=== PATIENT | female | born 1970 | race Caucasian/White ===

== ENCOUNTER 2018-08-03 10:29 | Emergency (ER) | payer OTHER ==
[2018-08-03 10:43] VITALS: TEMP 97.9; BMI 30.6
[2018-08-03] MEDS ORDERED: ALBUTEROL SO4 2.5/IPRATROPIUM 0.5 INH SOL 3 ML VIAL.NEB. NEB ONE ×2 (10:54→11:10)
--- NOTE | 2018-08-03 11:09 | PDOC ---
History of Present Illness - General Chief Complaint: Chest Pain Stated Complaint: CHEST PAIN Time Seen by Provider: 08/03/18 10:48 History Source: Patient Exam Limitations: No Limitations - History of Present Illness Initial Comments: 08/03/18 11:12 48 YOF with h/o asthma and panic attacks who p/w acute onset severe substernal chest pain radiating straight back to her back, onset while she was having SOB this morning typical of her normal asthma exacerbation. She notes anxiety recently, regarding many life stressors including a son with intractable epilepsy who is currently in the hospital, also the holiday season. She has continued pain now. She denies any recent f/c/n/v/d/c, abdominal pain, dysuria, vaginal bleeding/discharge, chance of being , rash, sweats, SI/HI, hallucinations, EtOh or drug use, leg pain/swelling, palpitations, hormone/OCP use, etc. Never had chest pain this bad in her life. Past History - Past Medical History Allergies/Adverse Reactions: Allergies Allergy/AdvReac Type Severity Reaction Status Date / Time No Known Allergies Allergy Verified 08/03/18 10:37 Home Medications: Ambulatory Orders Diazepam [Valium] 2 mg PO DAILY PRN #5 tablet MDD 1 tab 08/03/18 Asthma: Yes COPD: No Psychiatric Problems: Yes (panic attacks) - Immunization History Immunization Up to Date: Yes - Suicide/Smoking/Psychosocial Hx Smoking History: Current every day smoker Number of Cigarettes Smoked Daily: 2 Information on smoking cessation initiated: No Hx Alcohol Use: Yes Drug/Substance Use Hx: No Review of Systems - Review of Systems Able to Perform ROS?: Yes Comments:: GEN: no fever, chills, generalized weakness, or malaise HEENT: no ear pain, eye pain, throat pain, throat swelling, nosebleed, vision change, or loose teeth SKIN: no cuts, abrasions, bruises, rashes, or jaundice CV: chest pain, no palpitations, or LOC RESP: SOB, no cough GI: no abdominal pain, nausea, vomiting, or black/bloody stool : no hematuria or flank pain/bruising MSK: no muscle weakness, muscle pain, joint pain, or joint swelling NEURO: no headache, seizure, numbness, tingling, or focal weakness PSYCH: self-reported panic attack, no suicidality, homicidality, or substance use *Physical Exam - Vital Signs Last Vital Signs Temp Pulse Resp BP Pulse Ox 97.9 F 57 L 30 H 107/84 98 08/03/18 10:37 08/03/18 10:37 08/03/18 10:37 08/03/18 10:37 08/03/18 10:37 08/03/18 11:37 GENERAL: very anxious and tearful adult female who otherwise appears nontoxic, nourished, A/Ox4, SO at bedside, speaking in full sentences, answers questions appropriately HEENT: PERRLA, EOMI, moist mucous membranes, no posterior pharyngeal erythema, no tonsillar swelling or exudates, no cervical lymphadenopathy, no stridor NECK: no midline ttp, no spinal stepoff or deformity, full ROM, supple CARDIOVASCULAR: bradycardic, normal S1S2, no MGR, radial and DP pulses 2+ and symmetric, capillary refill <2 seconds, extremities warm and well-perfused CHEST WALL: normal appearance, no rash, no bruising, no costal stepoff or deformity, nontender to compression LUNGS/RESPIRATORY: tachypneic, normal and symmetric chest movements during respirations, lungs with slightly diminished breath sounds and slight wheezes bilaterally, no cyanosis, no nail clubbing GI/ABDOMEN: symmetric appearance, normoactive bowel sounds, soft, no tenderness to palpation, no midline pulsatile masses, no palpated organomegaly BACK: no midline ttp or stepoff or deformity of thoracic or lumbar spine EXTREMITIES: distal pulses 2+, warm and well-perfused, no LE edema SKIN: warm and dry, no pallor, no jaundice, no bruising, no rash, no skin breakdown, no cuts, no lesions NEUROLOGICAL: GCS 15, CN II-XII grossly intact, ambulating with normal gait, moving all extremities, 5/5 strength proximally and distally, no facial droop, no decreased sensation Moderate Sedation - Procedure Monitoring Vital Signs: Procedure Monitoring Vital Signs Temperature 97.9 F 08/03/18 10:37 Pulse Rate 57 L 08/03/18 10:37 Respiratory Rate 30 H 08/03/18 10:37 Blood Pressure 107/84 08/03/18 10:37 O2 Sat by Pulse Oximetry (%) 98 08/03/18 10:37 Heart Score/ECG Review - History History: Slightly suspicious - Electrocardiogram EKG: Normal - Age Age: 45-65 - Risk Factors Based on the list above the patient has:: No risk factors known - Troponin Troponin: </= normal limit - Score Heart Score - Total: 1 #1 08/03/18 10:35 Sinus bradycardia, rate of 54, normal axis and intervals, small isolated TWI in V2, otherwise no ST-T changes #2 08/03/18 15:30 REPEAT EKG. Sinus bradycardia, rate 47, normal axis and intervals, isolated small TWI in V2, otherwise no ST-T changes, unchanged from prior other than rate. ED Treatment Course - LABORATORY CBC & Chemistry Diagram: 08/03/18 11:15 08/03/18 11:15 - RADIOLOGY Radiology Studies Ordered: Category Date Time Status CXRPORT [CHEST X-RAY PORTABLE*] [RAD] Stat Radiology 08/03/18 10:54 Ordered Medical Decision Making - Medical Decision Making 08/03/18 11:16 Adult Pt p/w chest pain. Initial Vital Signs Temp Pulse Resp BP Pulse Ox 97.9 F 57 L 30 H 107/84 98 08/03/18 10:37 08/03/18 10:37 08/03/18 10:37 08/03/18 10:37 08/03/18 10:37 Exam: As noted in Physical Exam section. DDX IBNLT: ACS, pneumomediastinum, pneumothorax, PE, or panic attack. Must less likely but still considered are the following: pericarditis, tamponade, aortic dissection, AAA, PTX, esophageal tear, esophagitis (e.g. pill, infectious), esophageal stricture, esophageal FB, gastritis, PUD, pancreatitis, cholecystitis , cholangitis, colitis, bowel perforation, PNA/bronchitis, pleurisy, pleuritis, MVP, pulmonary HTN, musculoskeletal, etc. W/U ordered: Labs as noted below, EKG CXR. TX ordered: monitor (patient refuses IV), valium PO EKG: Reviewed; results as noted in ECG Review section. CXR: Nothing acute Laboratory Tests 08/03/18 08/03/18 08/03/18 11:15 11:15 11:15 WBC RBC Hgb Hct MCV MCH MCHC RDW Plt Count MPV Absolute Neuts (auto) Neutrophils % Lymphocytes % Monocytes % Eosinophils % Basophils % Nucleated RBC % PT with INR 10.20 INR 0.87 PTT (Actin FS) 28.0 Sodium Potassium Chloride Carbon Dioxide Anion Gap BUN Creatinine Creat Clearance w eGFR Random Glucose Calcium Total Bilirubin AST ALT Alkaline Phosphatase Creatine Kinase 77 Troponin I < 0.02 Total Protein Albumin Lipase 170 Blood Type Antibody Screen 08/03/18 08/03/18 08/03/18 11:15 11:15 11:15 WBC 5.4 RBC 4.20 Hgb 13.5 Hct 38.2 MCV 90.9 MCH 32.1 MCHC 35.3 RDW 13.1 Plt Count 222 MPV 8.6 Absolute Neuts (auto) 3.0 Neutrophils % 55.1 Lymphocytes % 36.0 Monocytes % 7.3 Eosinophils % 1.3 Basophils % 0.3 Nucleated RBC % 0 PT with INR INR PTT (Actin FS) Sodium 138 Potassium 3.7 Chloride 108 H Carbon Dioxide 22 Anion Gap 8 BUN 17 Creatinine 0.8 Creat Clearance w eGFR > 60 Random Glucose 90 Calcium 8.1 L Total Bilirubin 0.4 AST 21 ALT 17 Alkaline Phosphatase 54 Creatine Kinase Troponin I Total Protein 6.5 Albumin 3.4 Lipase Blood Type O POSITIVE Antibody Screen Negative Reassessment: Patient states feeling much better. Appears much calmer. HR 47 but patient asymptomatic, no palpitations, likely has good vagal tone and slow resting HR. Repeat VS: 08/03/18 15:36 Repeat cardiac enzymes are negative. No new abnormal rhythms have been observed. On last reassessment VS are stable, Pts pain is resolved, and exam is benign. The Pt is appropriate for discharge with close outpatient follow up. They are comfortable with this plan and will follow up with their primary care provider in 1-3 days. Referral info given for psychiatry at the patient's request. E-Rx is sent to the patient's pharmacy for Valium #5 pills prn anxiety. Specific return precautions are discussed and they will come back to the ER if necessary. *DC/Admit/Observation/Transfer Diagnosis at time of Disposition: Shortness of breath Chest pain Qualifiers: Chest pain type: unspecified Qualified Code(s): R07.9 - Chest pain, unspecified - Discharge Dispostion Disposition: HOME Condition at time of disposition: Stable Decision to Admit order: No - Prescriptions Prescriptions: Diazepam [Valium] 2 mg PO DAILY PRN #5 tablet MDD 1 tab PRN Reason: Anxiety - Referrals - Patient Instructions Printed Discharge Instructions: DI for Chest Pain Additional Instructions: You were seen in the ER for chest pain. We did lab work on your blood and urine , an electrocardiogram, and a chest x-ray, and we did not find any concerning abnormalities. Your symptoms improved in the ER. After our assessment, we do not believe you are having a medical emergency at this time, and we believe you are safe to go home. Please mushroom picker the prescription Valium that we are sending electronically to your pharmacy, and take it is you feel like you are becoming anxious. Take [id number] pain medications for pain, as instructed on the medication label. Please follow up with your primary care provider in 1-3 days. Also call our psychiatrist office if you would like help managing your stress and anxiety, because they may be able to help. We are providing referral information in this packet. Call their clinic as soon as possible, tell them you were seen in the ER, and tell them you need an appointment. If you have any new or worsening symptoms, especially worsening chest pain, jaw pain, shoulder/ arm pain, shortness of breath, sweats, nausea, loss of consciousness, palpitations, or other symptoms, please come back to the ER at any time (24 hours a day). If you are having severe or life threatening symptoms, or symptoms that make it unsafe to drive or have someone drive you, please call 911. - Post Discharge Activity
[2018-08-03] MEDS ORDERED: diazePAM 5 MG TABLET PO ONE (11:23)
[2018-08-03] MEDS ORDERED: diazePAM 5 MG TABLET ONE (11:32)
--- NOTE | 2018-08-03 11:33 | PDOC ---
Attending Attestation - Resident Resident Name: Charity Jones - ED Attending Attestation I have performed the following: I have examined & evaluated the patient, The case was reviewed & discussed with the resident, I agree w/resident's findings & plan, Exceptions are as noted - HPI HPI: 08/03/18 11:25 48 F with h/o asthma and panic attacks presents to ED with sudden onset chest pain and SOB. Pt states that she was at home when she suddenly felt a sharp midsternal chest pain. Pt states that she suddenly started breathing very quickly and felt chills. Pt denies any radiation of the pain to her back or abdomen. Denies any recent travel/immobilization. Is not on OCP. Does not have h /o DVT/PE. Denies leg swelling. Pt states that her typical panic attacks manifest as SOB and "shaking". SHe has never had chest pain before. - Physicial Exam PE: 08/03/18 11:27 "GENERAL: Awake, alert, and fully oriented, in no acute distress. HEAD: No signs of trauma EYES: PERRLA, EOMI, sclera anicteric, conjunctiva clear ENT: Auricles normal inspection, hearing grossly normal, nares patent, oropharynx clear without exudates. Moist mucosa NECK: Nontender, no stepoffs, Normal ROM, supple, no lymphadenopathy, JVD, or masses LUNGS: Breath sounds equal, clear to auscultation bilaterally. No wheezes, and no crackles HEART: Regular rate and rhythm, normal S1 and S2, no murmurs, rubs or gallops ABDOMEN: Soft, nontender, normoactive bowel sounds. No guarding, no rebound. No masses EXTREMITIES: Normal range of motion, no edema. No clubbing or cyanosis. No cords, erythema, or tenderness NEUROLOGICAL: Cranial nerves II through XII intact. 5/5 strength and sensation in all extremities, Normal speech, normal gait, normal cerebellar function SKIN: Warm, Dry, normal turgor, no rashes or lesions noted. - Medical Decision Making 08/03/18 11:27 48 F with acute onset chest pain and SOB. Suspect panic attack, as pt is young with no cardiac risk factors. EKG does not have any acute ischemic changes. PE unlikely, pt with PERC score 0, no signs of DVT. Pt with clear lungs, no signs of asthma. - Labs, trop - CXR - Valium 08/03/18 14:57 Labs and trop negative x2 CXR clear Pt reassessed - now with complete resolution of symptoms. Pt is well appearing, with normal vitals. Clinically stable for DC at this time. I discussed the physical exam findings, ancillary test results and final diagnoses with the patient. I answered all of the patient's questions. The patient was satisfied with the care received and felt comfortable with the discharge plan and treatment plan. The patient agrees to follow up with the primary care physician within 24-72 hours.
[2018-08-03 11:42] LABS: BASO % 0.3 % (0-2.0); EOS % 1.3 % (0-4.5); HEMATOCRIT 38.2 % (32.4-45.2); HEMOGLOBIN 13.5 GM/dL (10.7-15.3); MCH 32.1 pg (25.7-33.7); MCHC 35.3 g/dl (32.0-36.0); MEAN CELL VOLUME 90.9 fl (80-96); MEAN PLT VOLUME 8.6 fl (7.5-11.1); MONO % 7.3 % (3.8-10.2); NEUT % 55.1 % (42.8-82.8); PLATELET COUNT 222 K/MM3 (134-434); RDW 13.1 % (11.6-15.6); WHITE BLOOD COUNT 5.4 K/mm3 (4.0-10.0)
[2018-08-03 12:36] LABS: INR 0.87 (0.83-1.09); PROTHROMBIN TIME (PATIENT) 10.2 SEC (9.7-13.0)
[2018-08-03 13:05] LABS: ALBUMIN 3.4 g/dl (3.4-5.0); ALK PHOS 54 U/L (45-117); ANION GAP 8 MMOL/L (8-16); BILIRUBIN,TOTAL 0.4 mg/dL (0.2-1); BLOOD UREA NITROGEN 17 mg/dL (7-18); CALCIUM 8.1 mg/dL (8.5-10.1); CHLORIDE 108 mmol/L (98-107); CO2 22 mmol/L (21-32); CREATININE 0.8 mg/dL (0.55-1.3); GLUCOSE,RANDOM 90 mg/dL (74-106); POTASSIUM 3.7 mmol/L (3.5-5.1); SGOT/AST 21 U/L (15-37); SGPT/ALT 17 U/L (13-61); SODIUM 138 mmol/L (136-145); TOT PROT 6.5 g/dl (6.4-8.2)
[2018-08-03 16:31] VITALS: BP 108/75; PULSE 66
--- NOTE | 2018-08-04 07:21 | EKG ---
Test Reason : Blood Pressure : / mmHG Vent. Rate : 054 BPM Atrial Rate : 054 BPM P-R Int : 152 ms QRS Dur : 080 ms QT Int : 464 ms P-R-T Axes : 057 051 054 degrees QTc Int : 440 ms SINUS BRADYCARDIA CANNOT RULE OUT ANTERIOR INFARCT , AGE UNDETERMINED ABNORMAL ECG NO PREVIOUS ECGS AVAILABLE Confirmed by AGUSTÍN NICHOLS MD ([id number]) on 08/04/2018 7:20:36 AM Referred By: Confirmed By:AGUSTÍN NICHOLS MD
--- NOTE | 2018-08-04 14:32 | EKG ---
Test Reason : Blood Pressure : / mmHG Vent. Rate : 047 BPM Atrial Rate : 047 BPM P-R Int : 130 ms QRS Dur : 078 ms QT Int : 472 ms P-R-T Axes : 056 029 033 degrees QTc Int : 417 ms POOR DATA QUALITY, INTERPRETATION MAY BE ADVERSELY AFFECTED SINUS BRADYCARDIA OTHERWISE NORMAL ECG WHEN COMPARED WITH ECG OF 03-AUG-2018 10:35, NO SIGNIFICANT CHANGE WAS FOUND Confirmed by Carlos Isbell ([id number]) on 08/04/2018 2:32:27 PM Referred By: Confirmed By:Carlos Isbell
== END 2018-08-03 16:31 | disposition home or self-care (01) ==
LOC: JER 10:29
PROC: 3E0F7GC Introduction of Other Therapeutic Substance into Respiratory Tract, Via Natural or Artificial Opening (ICD-10-PCS; principal; 2018-08-03)
DX: R07.9 Chest pain, unspecified (principal); J45.909 Unspecified asthma, uncomplicated; F41.0 Panic disorder [episodic paroxysmal anxiety]
CPT/HCPCS: 36415; 71045-TC-FY; 80053; 82550; 83690; 84484; 85025; 85610; 85730; 86850; 86900; 86901; 93005; 93010; 99284-25

== ENCOUNTER 2020-04-08 08:59 | Emergency (ER) | payer OTHER ==
[2020-04-08 09:07] VITALS: BMI 31.1
[2020-04-08] MEDS ORDERED: KETOROLAC TROMETHAMINE 30 MG/1 ML VIAL IVPUSH ONE (09:49)
[2020-04-08] MEDS ORDERED: KETOROLAC TROMETHAMINE 30 MG/1 ML VIAL ONE (10:15)
[2020-04-08 10:23] LABS: BASO % 0.3 % (0-2.0); EOS % 0.2 % (0-4.5); HEMATOCRIT 39.5 % (32.4-45.2); LYMPH % 13.4 % (8-40); MCH 30.1 pg (25.7-33.7); MEAN CELL VOLUME 91.2 fl (80-96); MEAN PLT VOLUME 8.4 fl (7.5-11.1); MONO % 4.7 % (3.8-10.2); NEUT % 81.4 % (42.8-82.8); PLATELET COUNT 221 K/MM3 (134-434); RBC 4.33 M/mm3 (3.60-5.2)
--- NOTE | 2020-04-08 10:34 | PDOC ---
History of Present Illness - General Chief Complaint: Pain Stated Complaint: NAUSEA/VOMITING Time Seen by Provider: 04/08/20 09:35 History Source: Patient Exam Limitations: No Limitations - History of Present Illness Travel History: No Initial Comments: 04/08/20 10:30 49-year-old presents to ED with complaints of generalized abdominal sharp pain worsened with movement greater in the upper quadrants for the past 3 days. Patient states yesterday did vomit Yesterday but states it was due to the pain and not from nausea. Patient has no bowel complaints, urinary complaints but does state pain over her right kidney. Patient suffers from anxiety which is exacerbated her symptoms and denies any rash, chest pain, shortness of breath. Patient states does have handicapped son at home who was in his 20s which she carries often and is unsure if the pain is related to a muscle strain. Timing/Duration: reports: intermittent Quality: reports: moderate Abdominal Pain Onset Location: reports: RUQ, LUQ Pain Radiation: reports: no radiation Activities at Onset: reports: none Aggravating Factors: improves with: Movement Alleviating Factors: improves with: Rest Past History - Travel History Traveled outside of the country in the last 30 days: No Close contact w/someone who was outside of country & ill: No - Medical History Allergies/Adverse Reactions: Allergies Allergy/AdvReac Type Severity Reaction Status Date / Time No Known Allergies Allergy Verified 04/08/20 10:24 Home Medications: Ambulatory Orders Sulfamethoxazole/Trimethoprim [Bactrim Ds -] 1 tab PO BID #20 tablet 04/08/20 Asthma: Yes COPD: No Psychiatric Problems: Yes (panic attacks) - Reproductive History Is Patient Now?: No - Immunization History Immunization Up to Date: Yes - Psycho-Social/Smoking History Patient Lives Alone: No Lives with/in: spouse/SO Smoking History: Never smoked Number of Cigarettes Smoked Daily: 2 Review of Systems - Review of Systems Able to Perform ROS?: No Constitutional: No: Symptoms Reported HEENTM: No: Symptoms Reported Respiratory: No: Symptoms reported Cardiac (ROS): No: Symptoms Reported ABD/GI: Yes: Vomiting, Abdominal cramping. No: Constipated, Diarrhea : No: Symptoms Reported Musculoskeletal: No: Symptoms Reported Integumentary: No: Symptoms Reported Neurological: No: Symptoms reported Endocrine: No: Symptoms Reported Hematologic/Lymphatic: No: Symptoms Reported *Physical Exam - Vital Signs Last Vital Signs Temp Pulse Resp BP Pulse Ox 98.5 F 69 16 99/64 98 04/08/20 09:02 04/08/20 09:02 04/08/20 09:02 04/08/20 09:02 04/08/20 09:02 - Physical Exam General Appearance: Yes: Nourished, Appropriately Dressed. No: Apparent Di stress HEENT: positive: EOMI, SABA. negative: Pale Conjunctivae Neck: positive: Supple Respiratory/Chest: positive: Chest Tender (Left chest wall. No nipple discharge), Lungs Clear, Normal Breath Sounds. negative: Respiratory Distress, Accessory Muscle Use Cardiovascular: positive: Regular Rhythm, Regular Rate. negative: Murmur Gastrointestinal/Abdominal: positive: Soft, Tenderness (Generalized upper) Musculoskeletal: positive: CVA Tenderness (R) Extremity: positive: Normal Inspection Integumentary: positive: Normal Color, Warm, Moist Neurologic: positive: Normal Mood/Affect (Anxious appearing), Motor Strength 5/5 (Ambulatory) Heart Score/ECG Review - ECG Intrepretation Rhythm: Regular Rhythm (Rate 62 normal sinus rhythm. No elevation or depression. QTc 454 ms) ED Treatment Course - LABORATORY CBC & Chemistry Diagram: 04/08/20 10:02 04/08/20 10:02 - Medications Given in the ED: ED Medications Discontinued Medications Generic Name Dose Route Start Last Admin Trade Name Freq PRN Reason Stop Dose Admin Ketorolac Tromethamine 30 mg 04/08/20 09:49 04/08/20 10:20 Toradol Injection - IVPUSH 04/08/20 09:50 30 mg ONCE ONE Administration Medical Decision Making - Medical Decision Making 04/08/20 10:40 Chief complaint: Upper abdominal sharp pain worsened with movement and also complaining of right kidney pain with one episode of vomiting yesterday. Exam: Left upper quadrant and right upper quadrant pain with left CVA tenderness. Patient also tender to the left chest without breast involvement. Plan: CBC, comp, cardiac profile, EKG lipase, mag, urine urine culture Toradol IV and reassessment 04/08/20 11:20 Laboratory Tests 04/08/20 04/08/20 04/08/20 10:00 10:02 10:02 WBC 9.0 Hgb 13.0 Hct 39.5 Neutrophils % 81.4 D Lymphocytes % 13.4 D Eosinophils % 0.2 D Sodium 141 Potassium 4.6 Chloride 108 H Carbon Dioxide 27 Anion Gap 5 L BUN 14.7 Creatinine 0.9 Calcium 8.7 Magnesium 2.2 AST 424 H ALT 191 H Alkaline Phosphatase 84 Creatine Kinase 61 Troponin I < 0.02 Total Protein 6.9 Albumin 3.4 Urine HCG, Qual Negative 04/08/20 12:15 Chest x-ray negative for acute pathology. IV ceftriaxone ordered to treat pyelonephritis (positive UA positive left CVA tenderness) 04/08/20 12:17 Discharge home with Bactrim 04/08/20 13:15 Laboratory Tests 04/08/20 04/08/20 10:00 10:02 Total Bilirubin 0.7 Total Amylase 36 Lipase 127 Urine Nitrite Positive H Ur Leukocyte Esterase Negative Urine WBC (Auto) 151 Urine RBC (Auto) 19 04/08/20 13:16 Laboratory Tests 04/08/20 10:02 Total Amylase 36 Lipase 127 04/08/20 13:18 Pyelonephritis kidney infection ultrasound shows cholelithiasis with no sonographic evidence of cholecystitis. Minimally prominent CBD measuring 6 x 2 mm correlate with patient's clinical history symptoms LFTs and bilirubin. If indicated MRCP may be obtained for further evaluation. Largest gallstone measuring 2.9 x 2.1 x 2 no got gallbladder wall thickening or pericholecystic fluid seen hepatitis panel added. patient will be discharged home to follow-up with GI along with prescription for treatment of pyelonephritis. Patient will be given strict instructions when to return to the ED and symptoms to be aware of. Patient refused hepatitis w/u (lab) Discharge - Discharge Information Problems reviewed: Yes Clinical Impression/Diagnosis: Pyelonephritis, Elevated LFTs Condition: Improved Disposition: HOME - Additional Discharge Information Prescriptions: Sulfamethoxazole/Trimethoprim [Bactrim Ds -] 1 tab PO BID #20 tablet - Follow up/Referral Referrals: Norris Pa MD [Staff Physician] - Shahid Rodriguez MD [Staff Physician] - - Patient Discharge Instructions Patient Printed Discharge Instructions: DI for Kidney Infection Additional Instructions: Take medication as prescribed starting tomorrow since you were given your first dose via IV today. Drink plenty of fluids Wipe from front to back. Wear cotton underwear. I have given you referrals for both specialist including GI and surgery You will be notified of your hepatitis panel if any abnormal findings are resulted - Post Discharge Activity
[2020-04-08 10:41] LABS: HCG,QUALITATIVE URINE Negative
[2020-04-08 10:57] LABS: ALBUMIN 3.4 g/dl (3.4-5.0); ANION GAP 5 MMOL/L (8-16); BILIRUBIN,TOTAL 0.7 mg/dL (0.2-1); BLOOD UREA NITROGEN 14.7 mg/dL (7-18); CALCIUM 8.7 mg/dL (8.5-10.1); CHLORIDE 108 mmol/L (98-107); CO2 27 mmol/L (21-32); CREATININE 0.9 mg/dL (0.55-1.3); GLUCOSE,RANDOM 96 mg/dL (74-106); MAGNESIUM 2.2 mg/dL (1.8-2.4); POTASSIUM 4.6 mmol/L (3.5-5.1); SGOT/AST 424 U/L (15-37); SGPT/ALT 191 U/L (13-61); SODIUM 141 mmol/L (136-145); TOT PROT 6.9 g/dl (6.4-8.2)
[2020-04-08 11:00] LABS: ALK PHOS 84 U/L (45-117)
[2020-04-08 11:25] LABS: EPI CELLS 36 /uL (0-25.1); HYALINE CASTS 9 /uL (0-3.1); URINE APPEARANCE CLOUDY; URINE BACTERIA >9,000 /uL (0-1359); URINE BILIRUBIN NEGATIVE (NEGATIVE); URINE COLOR YELLOW; URINE GLUCOSE (UA) NEGATIVE (NEGATIVE); URINE KETONE NEGATIVE (NEGATIVE); URINE LEUK ESTERASE NEGATIVE (NEGATIVE); URINE NITRITE POSITIVE (NEGATIVE); URINE PROTEIN NEGATIVE (NEGATIVE); URINE RBC 19 /uL (0-23.9); URINE WBC 151 /uL (0-25.8)
[2020-04-08] MEDS ORDERED: CEFTRIAXONE 1 GM in DEXTROSE 5%-WATER - 50 ML IVPB ONE (11:54)
[2020-04-08] MEDS ORDERED: CEFTRIAXONE 1 GM/50 ML BAG ONE (12:09)
[2020-04-08 13:03] LABS: AMYLASE 36 U/L (25-115); LIPASE 127 U/L (73-393)
[2020-04-08 13:37] VITALS: BP 106/67; PULSE 57; TEMP 97.4
--- NOTE | 2020-04-08 14:54 | EKG ---
Test Reason : Blood Pressure : / mmHG Vent. Rate : 062 BPM Atrial Rate : 062 BPM P-R Int : 148 ms QRS Dur : 082 ms QT Int : 448 ms P-R-T Axes : 062 046 038 degrees QTc Int : 454 ms NORMAL SINUS RHYTHM NORMAL ECG WHEN COMPARED WITH ECG OF 03-AUG-2018 15:30, NO SIGNIFICANT CHANGE WAS FOUND Confirmed by RADHA LI MD ([id number]) on 04/08/2020 2:54:26 PM Referred By: Confirmed By:RADHA LI MD
== END 2020-04-08 14:06 | disposition home or self-care (01) ==
LOC: JER 08:59
PROC: 3E03329 Introduction of Other Anti-infective into Peripheral Vein, Percutaneous Approach (ICD-10-PCS; principal; 2020-04-08)
PROC: 3E033GC Introduction of Other Therapeutic Substance into Peripheral Vein, Percutaneous Approach (ICD-10-PCS; 2020-04-08)
DX: N10 Acute pyelonephritis (principal); R94.5 Abnormal results of liver function studies
CPT/HCPCS: 36415; 71045-TC-FY; 76705-TC; 80053; 81003; 82150; 82550; 83690; 83735; 84484; 84703; 85025; 87086; 87186; 93005; 93010; 99285-25